=== PATIENT | female | born 1965 | race Caucasian/White ===

== ENCOUNTER 2024-04-19 13:51 | Outpatient (CLI) | payer BC, SELFPAY ==
--- NOTE | 2024-04-19 14:54 | NEURO ---
NCS and/or EMG Patient Report Ordering Doctor: Lurdes Comer DATE OF SERVICE: 04/19/24 Clinical Summary: 58 year old female patient with symptoms of right hand numbness and tingling. Nerve Conduction Studies Summary: Nerve conduction studies of the right upper extremity were performed. The right ulnar motor conduction velocity dropped more than 10 m/s across the elbow. Needle Examination Summary: Needle examination of select muscles of the right upper extremity demonstrated a higher proportion of motor unit action potentials with reduced recruitment, increased amplitude, increased duration, and polyphasia in the right flexor carpi radialis muscle. 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 Clinical correlation is advised. Multi Select Codes Neurology Neurology Interp Codes: 83798-43 Musc test done w/n test comp (interp) (1) and 25971-47 Nrv cndj test 7-8 studies (interp)
== END 2024-04-19 23:59 | disposition home or self-care (01) ==
LOC: PSN 13:57
PROVIDERS: Referring Provider Physician Assistant Surgical; Visit Provider Physician Assistant Surgical
DX: M19.031 Primary osteoarthritis, right wrist (principal); M25.531 Pain in right wrist; G56.21 Lesion of ulnar nerve, right upper limb; R20.2 Paresthesia of skin
CPT/HCPCS: 95886; 95910

== ENCOUNTER → 2024-06-06 | Outpatient (CLI) | payer BC, SELFPAY ==
[2024-06-06 17:18] LABS: Erythrocyte Sedimentation Rate 4 mm/hr (0-30)
== END | disposition home or self-care (01) ==
LOC: BFHLAB 13:40
PROVIDERS: PCP Nurse Practitioner Family; Visit Provider Nurse Practitioner Family
DX: K90.0 Celiac disease (principal)
CPT/HCPCS: 36415; 85652